=== PATIENT | female | born 1990 | race Caucasian/White ===

== ENCOUNTER 2018-06-06 13:10 | Emergency (ER) | END 2018-06-06 17:01 | disposition home or self-care (01) ==

== ENCOUNTER 2018-10-12 10:48 | Outpatient (CLI) | payer BC ==
[~2018-10-12] VITALS: Ht 157.5 cm; Wt 139.2 kg
[~2018-10-12 10:48] MED LIST: ACET500C5 PO; AUG875 PO; AZIT250T PO; NO MEDS
[2018-10-12 11:02] VITALS: BP 113/82; PULSE 86; Ht 157.5 cm; Wt 139.2 kg
[2018-10-12] MEDS ORDERED: PNV11TAB PO (11:05)
--- NOTE | 2018-10-12 15:15 | TRIAGE ---
OB Triage Datetime Report Generated by CPN: 10/12/2018 15:15 Datetime: 10/12/2018 14:16 Stage of : OB Triage Datetime: 10/12/2018 13:30 Labor Evaluation Frequency: 0 Monitor Mode: External Pattern: Normal: <= 5 Contractions in 10 Minutes Resting Tone Merna: Relaxed Comments: REMOVED DUE TO GESTATIONAL AGE Pain Assessment Pain Scale: 3 Pain Presence: Constant Pain Type: Ache Pain Location: Back Pain Goal: 3 Pain Relief Measures: Comfort Measures Datetime: 10/12/2018 12:30 Labor Evaluation Frequency: 0 Monitor Mode: External Pattern: Normal: <= 5 Contractions in 10 Minutes Resting Tone Merna: Relaxed Comments: REMOVED DUE TO GESTATIONAL AGE Pain Assessment Pain Scale: 3 Pain Presence: Constant Pain Type: Ache Pain Location: Back Pain Goal: 3 Pain Relief Measures: Comfort Measures Datetime: 10/12/2018 11:51 Stage of : OB Triage Datetime: 10/12/2018 11:29 Stage of : OB Triage Assessment Type: Triage Maternal Assessment Level of Consciousness: Fully Conscious DTR's/Clonus: DTRs 2+; No Clonus Headache: Denies Blurred Vision: No Respiratory Effort: Unlabored; Regular Rhythm; Equal Expansion Breath Sounds, Left: Clear and Equal Breath Sounds, Right: Clear and Equal Nausea/Vomiting: Denies RUQ Epigastric Pain: Denies Facial Edema: None Temperature Route: Axillary Fall Risk Assessment History of Falling: (0) No Secondary Diagnosis: (0) No Ambulatory Aid: (0) Bedrest/Nurse Assist IV Therapy: (0) No Gait: (0) Normal/Bedrest/Immobile Mental Status: (0) Oriented to Own Ability Fall Score: 0 Fall Risk Score Definition: No Risk: No action required Labor Evaluation Frequency: 0 Monitor Mode: External Pattern: Normal: <= 5 Contractions in 10 Minutes Resting Tone Merna: Relaxed Heart Rate FHR Baseline Rate: 145 (Annotations: X1 MIN THEN REMOVED BASED ON GESTATIONAL AGE) Monitor Mode: External US Pain Assessment Pain Scale: 3 Pain Presence: Constant Pain Type: Pressure Pain Location: Perineum Pain Goal: 3 Pain Relief Measures: Comfort Measures Datetime: 10/12/2018 11:27 Time of Arrival: 10/12/2018 10:43 EGA: 23.1 Arrived By: Ambulatory Arrived From: Home Chief Complaint: C/O SMEAR OF BLOOD WHEN WIPING LAST NIGHT AND AGAIN IN THE MORNING, 1 VERY SMALL CLOT. DENIES LEAKING OR UC'S Movement: Present Contractions: Denies/Absent Rupture of Membranes: Denies Vaginal Bleeding: Scant Vaginal Discharge: Denies Recent Sexual Intercouse: Denies Abdominal Trauma: Not Applicable Patient Complaints: Cramping Time Provider Notified: 10/12/2018 11:51 Provider Notified: PATRICIA Initial Plan: MONITOR, U/A, C_S, CL
--- NOTE | 2018-10-12 17:41 | PN ---
Triage Information Date/Time 10/12/18 Reason for visit: Vag spotting / bleeding Weeks of Gestation 23w1d /Para Diabetes: none Hypertention: none Additional information s/p Hx of chlamydia on 07/17 Objective Vital Signs Date Temp Pulse Resp B/P (MAP) Pulse Ox O2 O2 Flow FiO2 Time Delivery Rate 10/12/18 98.4 86 113/82 11:02 (92) Heart Rate: 140's Heart Rate Comments detected on EFM Contractions: None Results/Medications Results 24 hrs Laboratory Tests Test 10/12/18 11:05 Urine Color YELLOW Urine Clarity SLIGHTLY CLOUDY A Urine pH 8.0 Urine Specific [place] 1.014 Urine Ketones NEGATIVE Urine Nitrite NEGATIVE Urine Bilirubin NEGATIVE Urine Urobilinogen NEGATIVE Urine Leukocyte Esterase 3+ H Urine Microscopic RBC 3 Urine Microscopic WBC 18 H Urine Squamous Epithelial Cells FEW Urine Bacteria FEW A Urine Hemoglobin NEGATIVE Urine Glucose NEGATIVE Urine Total Protein NEGATIVE Imaging Results CVL 3.5 Disposition: Discharge Assessment/Plan A IUP 23w1d UTI P discharge home with Rx macrobid BID for 10 days advise to drink more fluid STEPHAN GOMEZ MD Oct 12, 2018 17:41
== END 2018-10-12 14:30 | disposition home or self-care (01) ==
LOC: OBT 10:48 → L-D 10:50 → OBT 14:30
PROVIDERS: ATTEND Obstetrics & Gynecology
DX: O46.8X2 Other antepartum hemorrhage, second trimester (principal); Z3A.23 23 weeks gestation of pregnancy
CPT/HCPCS: 76817; 81001; 87086; G0463